=== PATIENT | female | born 1995 | race Hispanic/Latino ===

== ENCOUNTER 2018-06-26 14:25 | Emergency (ER) | payer OTHER ==
[~2018-06-26] VITALS: Ht 160 cm; Wt 61.4 kg
[2018-06-26] MEDS ORDERED: LIDOCAINE 2% MDV 20 ML VIAL SC ONE (14:45)
--- NOTE | 2018-06-26 15:10 | REP ---
Clinical: Crush injury. Technique: AP, lateral, bilateral oblique views of the right fourth digit. Findings: Comminuted fracture of the terminal tuft consistent with crush injury. Overlying soft tissue swelling. Impression: Comminuted fracture of the fourth digit terminal tuft. Electronically Signed by Deepak Rainey MD 06/26/2018 03:01 P
[2018-06-26] MEDS ORDERED: NORCOTAB PO (15:38)
[2018-06-26] MEDS ORDERED: KEFL500C17 PO (15:38)
[2018-06-26] MEDS ORDERED: cefTRIAXone SOD 1 GM VIAL (J0696) IM ONE (15:45)
[2018-06-26] MEDS ORDERED: LIDOCAINE 1% SDV 5 ML VIAL DILUENT ONE (15:45)
[2018-06-26 16:02] VITALS: BP 121/68
== END 2018-06-26 16:09 | disposition home or self-care (01) ==
LOC: M ED 14:25
DX: S62.634B Displaced fracture of distal phalanx of right ring finger, initial encounter for open fracture (principal); W23.0XXA Caught, crushed, jammed, or pinched between moving objects, initial encounter; Y92.098 Other place in other non-institutional residence as the place of occurrence of the external cause; F17.210 Nicotine dependence, cigarettes, uncomplicated; Z91.013 Allergy to seafood
CPT/HCPCS: 11760; 73140; 96372; 99284; J0696